=== PATIENT | male | born 1970 | race Caucasian/White ===

== ENCOUNTER 2020-04-02 09:17 | Outpatient (REF) | payer OTHER, SELFPAY | END 2020-04-02 09:18 | disposition home or self-care (01) | LOC: HO.LAB 09:17 | PROVIDERS: Visit Provider Internal Medicine | DX: Z20.828 Contact with and (suspected) exposure to other viral communicable diseases (principal) | CPT/HCPCS: C9803; U0003 ==

== ENCOUNTER 2020-04-08 14:31 | Outpatient (REF) | payer OTHER, SELFPAY | END 2020-04-08 14:32 | disposition home or self-care (01) | LOC: HO.LAB 14:31 | PROVIDERS: Visit Provider Internal Medicine | DX: Z20.828 Contact with and (suspected) exposure to other viral communicable diseases (principal) | CPT/HCPCS: C9803; U0003 ==

== ENCOUNTER 2023-07-01 11:09 | Emergency (ER) | payer OTHER, SELFPAY ==
--- NOTE | ~2023-07-01 | US_ITS ---
EXAMINATION: US VENOUS ULTRASOUND WITH DOPPLER LOWER EXTREMITY, LEFT CLINICAL INFORMATION: Pain. COMPARISON: None available. TECHNIQUE: Ultrasound of the deep veins is performed from the hip to the calf with compression sonography and color and pulse Doppler assessment. Spectral analysis with color-flow imaging is performed. FINDINGS: There is normal venous compression and respiratory variation and augmented flow. The visualized common femoral vein, superficial femoral vein, profunda femoral vein, popliteal vein, and the trifurcation region shows no evidence of deep venous thrombosis. There is no significant popliteal fossa cyst. If the patient's symptoms persist, followup ultrasound in 5 days 7 days might be of value to exclude proximal propagation from a non-visualized calf vein. US/US venous duplex LE LT IMPRESSION: No DVT demonstrated in the left lower extremity.
--- NOTE | ~2023-07-01 | XR_ITS ---
EXAMINATION: XR FEMUR, LEFT CLINICAL INFORMATION: Left femur fracture. Worsening medial thigh pain. COMPARISON: None available. TECHNIQUE: AP and lateral views of the left femur were obtained. FINDINGS: Left femoral intramedullary charis. Screw tracks proximally and distally consistent with removal of prior stabilization screws. Partially visualized proximal tibial intramedullary charis. No hardware fracture or perihardware lucency to suggest loosening or infection. Chronic, healed distal femoral fracture in near-anatomic alignment. Dystrophic ossification along the medial aspect of the fracture measuring up to 4.8 cm in craniocaudal dimension and approximately 3.8 cm in ML dimension. No acute fracture or dislocation. No concerning lytic or blastic osseous lesion. No evidence of avascular necrosis within the femoral head. XR/XR femur LT 2V IMPRESSION: 1. 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 2. Chronic, healed distal femoral fracture in near-anatomic alignment with dystrophic ossification along the medial aspect of the fracture. 3. No acute fracture or dislocation. No evidence of avascular necrosis.
[2023-07-01 11:25] VITALS: BP 141/93; PULSE 97; RESP 18; TEMP 36.6; O2SAT 97; BMI 35.3
--- NOTE | 2023-07-01 11:26 | ED.GENADULT ---
HPI - General Adult General Chief complaint: General Medical Stated complaint: quest dvt l leg swelling red painful Time Seen by Provider: 07/01/23 12:38 Source: patient and family () Mode of arrival: ambulatory Limitations: no limitations History of Present Illness HPI narrative: 52 year old male with pmhx significant for DVT presents to the ED today for evaluation of left lower extremity pain x4 days. He endorses pain to his left calf, anterior amaya, and medial thigh. He states the pain is more of a twitching/ vibrating sensation . He admits that the pain in his left leg began after he started exercising 4 days ago. He has been walking, climbing stairs, etc. Endorses sedentary office job. Denies numbness/tingling/weakness to the LLE, chest pain, SOB, dyspnea or hemoptysis. Denies difficulty ambulating. Admits he is concerned for recurring DVT and is requesting an ultrasound. 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 He currently takes aspirin daily. He admits that this pain/ discomfort feels different from prior DVTs. Denies recent travel or long car rides. He admits to previous fracture of his left femur requiring surgical repair with charis placement. Denies new injury/trauma to the leg. Related Data Allergies Allergy/AdvReac Type Severity Reaction Status Date / Time amoxicillin Allergy Itching Verified 07/01/23 11:29 shellfish derived Allergy Itching Verified 07/01/23 11:29 Review of Systems Review of Systems: Constitutional: No fever, chills, fatigue, night sweats, weight changes ENT/Mouth: No ear pain, hearing loss, nasal congestion, sinus pain, rhinorrhea, sore throat Eyes: No eye pain, swelling, redness, vision changes, discharge Cardio: No chest pain, palpitations, MCALLISTER, orthopnea, peripheral edema Pulm: No SOB, cough, sputum, wheezing, dyspnea, hemoptysis GI: No nausea, vomiting, hematemesis, abdominal pain, diarrhea, constipation, hematochezia, melena : No irregular bleeding, dysuria, frequency, urgency, hesitancy, hematuria, flank pain, urinary flow changes, urinary incontinence or retention MSK: No back pain, neck pain, joint pain, myalgias, +left calf/thigh pain Skin: No lesions, rashes Neuro: No weakness, numbness, paresthesias, LOC, dizziness, headache Psych: No anxiety/panic, depression, SI/HI, AH/VH All other systems reviewed and are negative. [facility] Past Medical History Attestation statement: The following information was validated with the patient. Source: old records reviewed and nursing notes reviewed Social History Social History Advance Directives: No Advance Directives Information Provided: Yes Physical Exam ED Vital Signs: Vital Signs - 24 hr 07/01/23 11:25 Temperature 97.9 F Pulse Rate 97 Respiratory Rate 18 Blood Pressure 141/93 H Pulse Oximetry 97 Oxygen Delivery Method Room Air BMI result Body Mass Index 35.3 Hypertensive, vitals otherwise wnl. Const General: cooperative, healthy appearing, comfortable and no acute distress Orientation/consciousness: patient oriented x3 Limitations: no limitations HENMT Head: Yes normal to inspection, Yes No palpable skull fracture present, Yes normocephalic and Yes atraumatic Eyes General: appearance normal, both eyes and all related structures Conjunctivae: conjunctivae normal Sclerae: sclerae normal Pupils: Equal, round and reactive pupils present Neck Neck: Yes normal visual inspection, Yes full ROM and Yes no JVD Resp Effort & Inspection: normal respiratory effort Auscultation: clear to auscultation bilaterally Cardio Rate: regular rate Rhythm: regular rhythm Skin General skin exam: no rashes or lesions noted Neuro General: patient oriented x3 Cranial nerves: Yes Equal, round and reactive pupils present Extrem Other: + no overlying skin changes/ erythema to left LE. no warmth. no calf tenderness b/l. ttp over the left medial thigh without palpable deformity. ambulating with steady gait. 2+ dp/pt pulses. General: Yes capillary refill normal, Yes no clubbing, cyanosis or edema and Yes normal gait Course Course Course Narrative: RME- 52 year old male presents for evaluation of left calf pain. He is concerned for DVT. He reports a history of DVT, not currently anticvoagulated. His symptoms started 4 days ago. Plan for ultrasound Reevaluation(s) Reevaluation #1: 1500-- Venous duplex of LLE does not demonstrate DVT. Xray of left femur shows intramedullary charis in place, chronically healed fracture without evidence of acute fracture or AVN. There is no clear etiology for patient's pain. I do not suspect acute arterial occlusion based on physical exam findings. Given symptoms began with exercising, this could be due to msk sprain/strain vs muscle spasms. > Informed patient of all imaging results. advised to follow up with pcp for repeat US if symptoms persist >7 days. Patient has remained stable throughout ED visit today. Discussed worrisome signs and symptoms and when to return to the ED. All questions answered at this time. Patient is agreeable with disposition and stable for discharge. Medical Decision Making Medical Decision Making [facility] Narrative: 52 year old male with pmhx significant for DVT presents to the ED today for evaluation of left lower extremity pain x4 days. Patient hypertensive to 141/93, vitals otherwise wnl. Not tachycardic. He is nontoxic appearing and in NAD. On exam, there is no calf tenderness b/l. RRR. Lungs CTA b/l. no overlying skin changes/ erythema to left LE. no warmth. no calf tenderness b/l. ttp over the left medial thigh without palpable deformity. ambulating with steady gait. 2+ dp/pt pulses. Differential includes DVT, msk sprain/strain, medial tibial stress syndrome, muscle spasm, hardware malfunction. Unlikely arterial occlusion, NV compromise, threat to limb, fracture. Plan for US, XRs and re-evaluation. Differential Diagnosis Differential Diagnoses: The differential diagnosis associated with the presentation includes as above. Admission/Observation Not indicated. Independent Interpretation I performed an independent interpretation of an: Plain X-Ray and Ultrasound Interpretation: I have personally reviewed venous duplex of left lower extremity and agree with radiologist's interpretation. I have personally reviewed xray of left femur and agree with radiologist's interpretation. Radiology Impression Discussion of test interpretation with radiology: I have reviewed the radiologist's reading. Radiologist Impression: US venous duplex LE LT IMPRESSION: No DVT demonstrated in the left lower extremity. XR femur LT 2V IMPRESSION: 1. 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 2. Chronic, healed distal femoral fracture in near-anatomic alignment with dystrophic ossification along the medial aspect of the fracture. 3. No acute fracture or dislocation. No evidence of avascular necrosis. Independent Historian Clinical information obtained from an independent historian. History obtained from or confirmed by: Spouse () External Record Review External record reviewed: Inpatient record, Office record, Outpatient record, Prior outpatient labs, Prior outpatient radiology, Primary care record and Outside ED record Prescription Management I considered prescription management with: Pain Medication Chronic Conditions Patient?s care impacted by: Other (DVT) Discharge Plan Discharge Clinical Impression: Muscle spasm Patient Disposition: Still a Patient Instructions: Leg Cramps (ED), Muscle Spasm (ED) Additional Instructions: The ultrasound of your left leg did not demonstrate acute DVT. The xray of your left femur shows stable heeling femur fracture with chronic bony changes. No acute fracture or hardware malfunction. Ensure you are stretching appropriately before and after exercising. Ensure you are staying hydrated and drinking enough water throughout the day. If symptoms continue over the next 5-7days, please follow up with your PCP for repeat ultrasound. You have also been provided with contact information to vascular doctor. You may call them to establish care. they will not call you. Return to the ED with new or worsening symptoms. In the case of emergency call 911. Referrals: [facility] [place] [Provider Group] Interventions: ED Discharge Assessment Last Done: 07/01/23 15:19 Discharge Date/Time: 07/01/23 15:22
== END 2023-07-01 15:22 | disposition still patient (30) ==
PROVIDERS: Emergency Provider Emergency Medicine Emergency Medical Services; PCP Internal Medicine
DX: M62.831 Muscle spasm of calf (principal); M79.662 Pain in left lower leg; Z86.718 Personal history of other venous thrombosis and embolism
CPT/HCPCS: 73552; 93971; 99282; 99284